=== PATIENT | female | born 1990 | race Caucasian/White ===

== ENCOUNTER 2023-03-21 09:16 | Emergency (ER) | payer OTHER, SELFPAY ==
[2023-03-21 09:17] VITALS: BP 119/73
--- NOTE | 2023-03-21 10:25 | ED.GENMED ---
History of Present Illness
General
Chief Complaint: Dizziness
Source: patient
Exam Limitations: none
Time Seen by Provider: 03/21/23 09:56
Nursing documentation reviewed up to this point in time: agreed with
Travel History
Have you had any contact with someone who has COVID-19?: No
Do you have any symptoms of coronavirus? Fever > 100 degrees, chills, cough, shortness of breath, sore throat, loss of taste or smell, muscle aches, or headache?: No
History of Present Illness
History of Present Illness:
32-year-old female with history of GERD, irregular menstrual cycles, anxiety/depression, bipolar disorder, 2 LEEP procedures 04/2021, presents stating she is 'extremely dizzy.' She states her symptoms have been worse for the past 3 days initially
waxing and waning but has become constant. The dizziness occurs at rest or with movement. She denies nausea or vomiting. She denies recent head injury. She denies headache.
She states she has had dizzy spells for over a year.
Past History
Past History
ED Past Medical History: Psychiatric and Other (Bipolar, PTSD)
ED Past Surgical History: Gynecological (LEEP x 2 04/2021)
Social History
Tobacco: Smoker
Alcohol: Occasional
Drug: None
Personal: Single
Living: alone
Employment: Employed
Family History
Family History: Unable to obtain
Review of Systems
Review of Systems
Allergies reviewed?: Yes
All Other Systems: ROS reviewed and negative except as documented in HPI and ROS
Constitutional: Denies fever or fatigue
EENT: Denies sore throat
Respiratory: Denies trouble breathing
Cardiac: Denies chest pain or palpitations
: Reports bleeding (Chronic irregular periods, had a [facility] doctor at [facility] but they no longer take her insurance. She has a immigration case worker at [facility] who is setting up a [employer] appointment.); Denies dysuria, frequency, flank pain, difficulty
voiding, urgency or discharge
Musculoskeletal: Reports other (Intermittent pain left upper inner thigh); Denies edema
Skin: Reports no symptoms
Neurological: Reports dizzy; Denies headache, weakness or numbness
Phy Exam
Physical Exam
Physical Exam:
GENERAL: No acute distress. A&Ox3.
CONSTITUTIONAL: Afebrile.
EYES: clear, PERRL, conjunctivae normal, no nystagmus
Neck: Supple
ENMT: moist mucus membranes, Pharynx nl, TMs normal
RESPIRATORY: Regular respirations, nonlabored, lungs clear.
CARDIOVASCULAR: Regular rate and rhythm, no murmurs, no rubs.
GI: Soft, mild epigastric tenderness, nondistended, normal BS
MUSCULOSKELETAL: Moves with ease. Well perfused.
SKIN: Warm, dry, pink
PSYCH: Normal mood and affect. Well kept, interactive and appropriate
NEUROLOGIC: Awake, alert and oriented. Speech clear. No focal neurological deficits. [id number] intact. Ambulates well with steady gait.
Course
Orders/Labs/Results
Orders:
Orders
03/21/23 10:24
Test Result ONCE
Physical Therapy Consult [Pt Eval And Treat] Urgent
Treatment: vestibular evaluation
Activity Level: As Tolerated
03/21/23 10:58
Complete Blood Count/With Diff Urgent
Comprehensive Metabolic Panel Urgent
HCG, Serum Qualitative Screen Urgent
Urinalysis Reflex To Culture Urgent
Date Specimen was Collected: 03/21/23
Time Specimen was Collected: 10:47
Urine Microscopic Reflex Cult Urgent
Urine Culture Urgent
MARIE Source: U
Specimen Description:
Date Specimen was Collected: 03/21/23
Time Specimen was Collected: 10:47
Abnormal Lab Results
03/21/23
10:58
Hct 36.1 L %
(37.0-47.0)
RDW 16.4 H %
(11.5-14.5)
Absolute Monos (auto) 0.7 H 10^3/uL
(0.1-0.6)
Ur Occult Blood Reflex 4+ A
(Negative)
Urine RBC 3-6 A /HPF
(0-2)
Urine Bacteria (Reflex) Many A
(Negative)
03/21/23 10:58
03/21/23 10:58
Vital Signs
Initial and Last Documented VS:
Initial Vital Signs
Temp Pulse Resp BP Pulse Ox
99.0 F 100 20 119/73 100
03/21/23 09:17 03/21/23 09:17 03/21/23 09:17 03/21/23 09:17 03/21/23 09:17
Last Documented Vital Signs
Temp Pulse Resp BP Pulse Ox
98.4 F 67 17 113/73 100
03/21/23 11:27 03/21/23 11:27 03/21/23 11:27 03/21/23 11:27 03/21/23 11:27
MDM/Problems Addressed
Differential Diagnosis Includes:
BPPV, labyrinthitis
MDM/Problems Addressed:
32-year-old female with history of GERD, irregular menstrual cycles, anxiety/depression, bipolar disorder, 2 LEEP procedures 04/2021, presents stating she is 'extremely dizzy.' She states her symptoms have been worse for the past 3 days initially
waxing and waning but has become constant. The dizziness occurs at rest or with movement. She states she's had dizziness episodes for past year and PCP aware. She denies nausea or vomiting. She denies recent head injury. She denies headache.
She states she has had dizzy spells for over a year.
Afebrile, NAD
Abdomen: Mild epigastric area discomfort with palpation. Patient does have a history of GERD intermittently takes Famotidine prn and she did take a famotidine yesterday with not much relief
03/21/2023 1145 AM
P/T in. Negative workup for BPPV
CBC normal CMP normal hCG negative
03/21/2023 1232 PM
UA: Negative for infection, 4+ RBCs, patient is having irregular periods. And has recently had some bleeding, her infrastructure developer at [facility] is arranging for her to have a [employer]ARD WORK[employer] exam.
she states she has not had a head CT for this dizziness and I offered to do 1 today but she states she would rather wait until she gets her insurance straightened out with [facility]. This is reasonable as patient has no focal neurological
deficits. No recent head injury, not anticoagulated, no progression of her symptoms.
Patient reassured nothing worrisome in her workup here today.
She is appreciative of the care and is comfortable going home.
*Critical Care Note
Total Time (30-74mins, 75-104mins- exclusive of procedures): Not Applicable
ED Attending Note
-
Portions of this chart may have been created with voice recognition software.� Occasional wrong word or��sound alike� substitutions may have occurred due to the inherent limitations of voice recognition software.
Discharge Plan
Departure
Patient Disposition: Home (Routine Discharge)
Date of Disposition: 03/21/23
Time of Disposition: 12:31
Patient with high blood pressure during this ER visit?: No
Condition: Good
Discharge Problem:
Dizziness
Instructions: Dizziness
Prescriptions:
No Action
famotidine [Heartburn Prevention] 20 MG tablet
20 mg PO PRN PRN (Reason: as directed)
ibuprofen 400 MG tablet
400 mg PO Q6HPRN PRN (Reason: as directed)
aripiprazole [Abilify] 1 MG/1 ML solution
100 mg IM MONTHLY
Epidiolex 1 UNIT solution
1 unit PO PRN PRN (Reason: as directed)
Iron
1 tab PO PRN PRN (Reason: as directed)
ketorolac 10 MG tablet
10 mg PO Q6HPRN PRN (Reason: pain) Qty: 20 0RF
clindamycin HCl 300 mg capsule
300 mg PO TID Qty: 30 0RF
Referrals:
Benja Fontana, DO [Family Provider] - As needed
Activity Restrictions/Additional Instructions:
As we discussed, I see nothing worrisome in your workup here today.
Continue to work on getting a [employer]CH[employer] WORKER appointment through [facility].
Talk to your primary doctor about possibly getting a CT of your head if your dizziness persists.
Interventions
Interventions:
*Risk Screen - Suicide Last Done: 03/21/23 13:04
*General Assessment Last Done: 03/21/23 11:01
*Neglect/Abuse Screening Last Done: 03/21/23 13:04
ED- Fall Risk Assessment Last Done: 03/21/23 11:01
*ED COVID-19 Vaccine History Last Done: 03/21/23 09:17
*Nursing Disposition Last Done: 03/21/23 13:04
ED- Neurological Assessment Last Done: 03/21/23 11:03
ED- Cardiac Assessment Last Done: 03/21/23 11:01
Discharge Date and Time
Discharge Date/Time: 03/21/23 13:06
[2023-03-21 11:19] LABS: Urine Albumin Negative (Neg - Trace); Urine Bilirubin Negative (Negative); Urine Character Slightly Cloudy (Clear); Urine Color Yellow; Urine Glucose Negative (Negative); Urine Ketone Negative (Negative); Urine Leukocyte Negative (Negative); Urine Nitrite Negative (Negative); Urine Occult Blood 4+ (Negative); Urine Urobilinogen Negative (Neg - 1+)
[2023-03-21 11:23] LABS: % Basophils 0.5 % (0-2); % Eosinophils 2.5 % (0-6); % Immature Granulocytes 0.2 % (0-0.5); % Lymphocytes 27.2 % (20.5-51.1); % Monocytes 8.4 % (1.7-9.3); % Neutrophils 61.2 % (42.2-75.2); Absolute Eosinophils 0.2 10^3/uL (0-0.7); Absolute Lymphocytes 2.3 10^3/uL (1.2-3.4); Absolute Monocytes 0.7 10^3/uL (0.1-0.6); Absolute Neutrophils 5.1 10^3/uL (1.4-6.5); Hematocrit 36.1 % (37.0-47.0); Hemoglobin 12.1 g/dL (12.0-16.0); Mean Corp Hgb Conc. 33.5 g/dL (33.0-37.0); Mean Corpuscular Hgb 27.9 pg (27.0-31.0); Mean Corpuscular Volume 83.2 fL (81.0-99.0); Mean Platelet Volume 9.3 fL (7.4-10.4); Nucleated Red Blood Cells % 0 %; Platelet Count 315 10^3/uL (130-400); Red Blood Cell Count 4.34 10^6/uL (4.20-5.40); Red Cell Dist. Width 16.4 % (11.5-14.5); White Blood Cell Count 8.3 10^3/uL (4.8-10.8)
[2023-03-21 11:27] VITALS: BP 113/73
[2023-03-21 11:35] LABS: ALT (SGPT) 12 U/L (0-35); AST (SGOT) 22 U/L (14-36); Albumin 3.6 g/dl (3.5-5.0); Alkaline Phosphatase 66 U/L (38-126); Blood Urea Nitrogen 10 mg/dl (7-17); Carbon Dioxide 29 mmol/L (22-30); Chloride 105 mmol/L (98-107); Glucose 98 mg/dl (70-99); HCG, Serum Qualitative Screen Negative; Potassium 3.9 mmol/L (3.5-5.1); Sodium 139 mmol/L (135-145); Total Bilirubin 0.9 mg/dl (0.2-1.3); Total Protein 6.4 g/dl (6.3-8.2); eGFR > 60.00
[2023-03-21 11:42] VITALS: BP 113/73
[2023-03-21 12:01] LABS: Urine Mucus Few; Urine Squamous Cell >30 /LPF (Few)
[2023-03-21 12:03] LABS: Urine Amorphous Seen; Urine Bacteria Many (Negative); Urine White Cell 0-2 /HPF (0-5)
== END 2023-03-21 13:06 | disposition home or self-care (01) ==
LOC: EMR 09:16
PROVIDERS: Registered Nurse; EMERGENCY PHYSICIAN Emergency Medicine; FAMILY PHYSICIAN Family Medicine
DX: R42 Dizziness and giddiness (principal); K21.9 Gastro-esophageal reflux disease without esophagitis; F41.9 Anxiety disorder, unspecified; F31.9 Bipolar disorder, unspecified; F17.200 Nicotine dependence, unspecified, uncomplicated
CPT/HCPCS: 99283; 80053; 81003; 81015; 84703; 85025; 87086

== ENCOUNTER → 2023-09-20 16:14 | Outpatient (REF) | payer SELFPAY ==
[2023-09-20 17:18] LABS: % Basophils 0.6 % (0-2); % Eosinophils 4.5 % (0-6); % Immature Granulocytes 0.1 % (0-0.5); % Lymphocytes 38.1 % (20.5-51.1); % Neutrophils 46.7 % (42.2-75.2); Absolute Basophils 0.1 10^3/uL (0-0.2); Absolute Eosinophils 0.4 10^3/uL (0-0.7); Absolute Monocytes 0.8 10^3/uL (0.1-0.6); Absolute Neutrophils 3.6 10^3/uL (1.4-6.5); Hematocrit 40.3 % (37.0-47.0); Hemoglobin 13.2 g/dL (12.0-16.0); Mean Corp Hgb Conc. 32.8 g/dL (33.0-37.0); Mean Corpuscular Hgb 28.2 pg (27.0-31.0); Mean Corpuscular Volume 86.1 fL (81.0-99.0); Nucleated Red Blood Cells % 0 %; Platelet Count 339 10^3/uL (130-400); Red Blood Cell Count 4.68 10^6/uL (4.20-5.40); White Blood Cell Count 7.8 10^3/uL (4.8-10.8)
[2023-09-20 17:31] LABS: ALT (SGPT) 11 U/L (0-35); AST (SGOT) 26 U/L (14-36); Albumin 4.2 g/dl (3.5-5.0); Alkaline Phosphatase 79 U/L (38-126); Blood Urea Nitrogen 9 mg/dl (7-17); Calcium 9.6 mg/dl (8.4-10.2); Carbon Dioxide 21 mmol/L (22-30); Chloride 109 mmol/L (98-107); Glucose 107 mg/dl (70-99); Potassium 4.1 mmol/L (3.5-5.1); Sodium 139 mmol/L (135-145); Total Bilirubin 0.9 mg/dl (0.2-1.3); Total Protein 7.1 g/dl (6.3-8.2); eGFR > 60.00
[2023-09-20 17:55] LABS: Vitamin D, 25-OH*** 28.7 ng/mL (30-80)
[2023-09-20 18:02] LABS: TSH 1.46 uIU/ml (0.47-4.68)
[2023-09-20 18:38] LABS: Folate 10.2 ng/ml (2.76-20); Vitamin B12 278 pg/ml (239-931)
== END ==
LOC: CLAB 16:14
PROVIDERS: ATTENDING PHYSICIAN Family Medicine
DX: D50.9 Iron deficiency anemia, unspecified (principal); R42 Dizziness and giddiness; N92.1 Excessive and frequent menstruation with irregular cycle
CPT/HCPCS: 80053; 82306; 82607; 82746; 84443; 85025

== ENCOUNTER → 2024-06-27 09:49 | Outpatient (REF) | payer OTHER, SELFPAY | LOC: RAD 09:49 | PROVIDERS: ATTENDING PHYSICIAN Obstetrics & Gynecology; FAMILY PHYSICIAN Family Medicine | DX: N93.9 Abnormal uterine and vaginal bleeding, unspecified (principal) | CPT/HCPCS: 76830; 76856 ==